=== PATIENT | male | born 1975 | race Asian ===

== ENCOUNTER 2018-06-17 00:21 | Inpatient (IN) | payer BC ==
[~2018-06-17] VITALS: Ht 175.3 cm; Wt 97.5 kg
[2018-06-17] VITALS (19 sets, daily range): BP systolic 105–151; BP diastolic 75–97
[2018-06-17] MEDS: NITROGLYCERIN 0.4 MG SL TABS BTL 25'S SL PRN ×2 (00:37→00:43)
--- NOTE | 2018-06-17 00:40 | ED Chest Pain ---
General Chief Complaint: Chest Pain Stated Complaint: SOB,PAIN IN JAW,NECK & BACK,FEVER Source: patient Exam Limitations: no limitations History of Present Illness Date Seen by Provider: Jun 17, 2018 Time Seen by Provider: 00:21 Initial Comments The patient presents to ER by private conveyance with chief complaint of chest pain starting about 10:00 or 2 and half hours prior to arrival. He says the chest pain/pressure started in his left chest radiated up his left jaw as well as his right jaw the left worse. Most of his pain is left jaw. Extremities left shoulder. No sweats nausea. He did take his temperature and it was 99.4. His blood pressure was high at 160. He does have high blood pressure on HCTZ. He has not had any cough or shortness of breath. No swelling in his hands or feet. No history of coronary artery disease. He does smoke about half pack cigarettes per day. No history of thyroid disorder. No diabetes but he is on atorvastatin 40 mg for his history of cholesterol problems. He rates the pain as severe 9-10 out of 10. He tried 3 tablets of ibuprofen, simethicone and 2 tablets of Tylenol with no relief. Allergies and Home Medications Allergies Coded Allergies: Penicillins (Verified Allergy, Unknown, 06/17/18) Patient Home Medication List Home Medication List Reviewed: Yes Review of Systems Review of Systems Constitutional: No chills, No diaphoresis EENTM: No Blurred Vision, No Double Vision Respiratory: Denies Cough, Denies Shortness of Air Cardiovascular: See HPI, Chest Pain; Denies Edema, Denies Palpitations, Denies Syncope Gastrointestinal: Denies Abdomen Distended, Denies Abdominal Pain, Denies Constipated, Denies Diarrhea, Denies Nausea, Denies Vomiting Genitourinary: Denies Burning, Denies Discharge Musculoskeletal: No back pain, No joint pain Skin: No pruritus, No rash Past Kpokwss-Ezrfnu-Qphdqk Hx Patient Social History Alcohol Use: Denies Use Recreational Drug Use: No Smoking Status: Current Everyday Smoker Type Used: Cigarettes (one half pack per day) Recent Foreign Travel: No Contact w/Someone Who Travel: No Physical Exam Vital Signs Vital Signs - First Documented 06/17/18 00:25 Temp 97.7 Pulse 101 Resp 18 B/P (MAP) 148/100 (116) Pulse Ox 99 O2 Delivery Room Air Capillary Refill : Height, Weight, BMI Height: '" Weight: lbs. oz. kg; BMI Method: General Appearance: WD/WN, Mild Distress HEENT: PERRL/EOMI, TMs Normal, Normal ENT Inspection, Pharynx Normal, Moist Mucous Membranes Neck: Full Range of Motion, Normal Inspection Respiratory: Chest Non Tender, Lungs Clear, Normal Breath Sounds, No Accessory Muscle Use, No Respiratory Distress Cardiovascular: Regular Rate, Rhythm, No Edema, Tachycardia (sinus tachycardia of 101) Gastrointestinal: Normal Bowel Sounds, Non Tender, Soft Extremity: Normal Capillary Refill, No Pedal Edema Neurologic/Psychiatric: Alert, Oriented x3 Progress/Results/Core Measures Results/Orders Lab Results Laboratory Tests Test 06/17/18 00:30 Range/Units White Blood Count 15.5 H 4.3-11.0 10^3/uL Red Blood Count 5.54 4.35-5.85 10^6/uL Hemoglobin 16.5 13.3-17.7 G/DL Hematocrit 46 40-54 % Mean Corpuscular Volume 84 80-99 FL Mean Corpuscular Hemoglobin 30 25-34 PG Mean Corpuscular Hemoglobin Concent 36 32-36 G/DL Red Cell Distribution Width 12.5 10.0-14.5 % Platelet Count 238 130-400 10^3/uL Mean Platelet Volume 8.9 7.4-10.4 FL Neutrophils (%) (Auto) 82 H 42-75 % Lymphocytes (%) (Auto) 11 L 12-44 % Monocytes (%) (Auto) 6 0-12 % Eosinophils (%) (Auto) 1 0-10 % Basophils (%) (Auto) 0 0-10 % Neutrophils # (Auto) 12.6 H 1.8-7.8 X 10^3 Lymphocytes # (Auto) 1.7 1.0-4.0 X 10^3 Monocytes # (Auto) 1.0 0.0-1.0 X 10^3 Eosinophils # (Auto) 0.1 0.0-0.3 10^3/uL Basophils # (Auto) 0.0 0.0-0.1 10^3/uL Neutrophils % (Manual) 82 % Lymphocytes % (Manual) 10 % Monocytes % (Manual) 3 % Eosinophils % (Manual) 1 % Band Neutrophils 4 % Blood Morphology Comment NORMAL Prothrombin Time 13.0 12.2-14.7 SEC INR Comment 0.9 0.8-1.4 Activated Partial Thromboplast Time 30 24-35 SEC Sodium Level 137 135-145 MMOL/L Potassium Level 3.2 L 3.6-5.0 MMOL/L Chloride Level 97 L 98-107 MMOL/L Carbon Dioxide Level 24 21-32 MMOL/L Anion Gap 16 H 5-14 MMOL/L Blood Urea Nitrogen 11 7-18 MG/DL Creatinine 0.84 0.60-1.30 MG/DL Estimat Glomerular Filtration Rate > 60 BUN/Creatinine Ratio 13 Glucose Level 171 H 70-105 MG/DL Calcium Level 9.5 8.5-10.1 MG/DL Corrected Calcium 8.5-10.1 MG/DL Magnesium Level 2.2 1.8-2.4 MG/DL Total Bilirubin 0.7 0.1-1.0 MG/DL Aspartate Amino Transf (AST/SGOT) 20 5-34 U/L Alanine Aminotransferase (ALT/SGPT) 28 0-55 U/L Alkaline Phosphatase 82 40-136 U/L Myoglobin 189.1 H 10.0-92.0 NG/ML Troponin I 0.080 H <0.028 NG/ML B-Type Natriuretic Peptide 14.7 <100.0 PG/ML Total Protein 7.9 6.4-8.2 GM/DL Albumin 4.9 H 3.2-4.5 GM/DL My Orders Orders - ALBERTA GLASS Cbc With Automated Diff (06/17/18 00:32) Magnesium (06/17/18 00:32) Chest 1 View, Ap/Pa Only (06/17/18 00:32) Ekg Tracing (06/17/18 00:32) Cardiac Profile 1 (06/17/18 00:32) Comprehensive Metabolic Panel (06/17/18 00:32) Myoglobin Serum (06/17/18 00:32) Protime With Inr (06/17/18 00:32) Partial Thromboplastin Time (06/17/18 00:32) O2 (06/17/18 00:32) Monitor-Rhythm Ecg Trace Only (06/17/18 00:32) Lipid Panel (06/18/18 06:00) Ed Iv/Invasive Line Start (06/17/18 00:32) BNP (06/17/18 00:32) Nitroglycerin 0.4 Mg Btl 25's (Nitrostat (06/17/18 00:45) Aspirin Chewable Tablet (Baby Aspirin Ch (06/17/18 00:45) Manual Differential (06/17/18 00:30) Morphine Injection (Morphine Injection (06/17/18 00:51) Ticagrelor Tablet (Brilinta Tablet) (06/17/18 01:30) Heparin Drip 22988 Unit/500ml (Heparin (06/17/18 01:16) Heparin (Bolus Per Protocol) (Heparin (B (06/17/18 01:16) Lactated Ringers (Lr 1000 Ml Iv Solution (06/17/18 01:30) Metoprolol Succinate (Xl) Tab (Toprol Xl (06/17/18 01:45) Morphine Injection (Morphine Injection (06/17/18 02:00) Morphine Injection (Morphine Injection (06/17/18 05:48) Medications Given in ED Current Medications Medications Dose Ordered Sig/Cailin Route Start Time Stop Time Status Last Admin Dose Admin Aspirin 324 mg ONCE ONCE PO 06/17/18 00:45 06/17/18 00:46 DC 06/17/18 00:36 324 MG Heparin Sodium (Porcine) HEPARIN BOLUS ACS PROTOC... 0116 ONCE IV 06/17/18 01:16 06/17/18 01:19 DC 06/17/18 01:39 5,000 UNIT Heparin Sodium/ Dextrose 500 ml @ 0 mls/hr Q0M ONCE IV 06/17/18 01:16 06/17/18 01:19 DC 06/17/18 01:46 20 MLS/HR Metoprolol Succinate 100 mg ONCE ONCE PO 06/17/18 01:45 06/17/18 01:46 DC 06/17/18 01:54 100 MG Nitroglycerin 0.4 mg UD PRN SL 06/17/18 00:45 06/17/18 00:43 0.4 MG Ticagrelor 180 mg ONCE ONCE PO 06/17/18 01:30 06/17/18 01:31 DC 06/17/18 01:37 180 MG Vital Signs/I&O 06/17/18 06/17/18 00:25 00:25 Temp 97.7 Pulse 101 Resp 18 B/P (MAP) 148/100 (116) Pulse Ox 99 O2 Delivery Room Air Room Air Progress Progress Note #1: Time: 00:45 Progress Note Start with some aspirin and nitroglycerin. EKG shows a right bundle branch block which he denies having history of. We'll get some labs. His blood pressure was about 145/101 when he got here. After the initial dosage down to 120/94. ED ACS 17 points. Not low risk. This patient is not a candidate for early discharge and should receive a standard chest pain evaluation with delayed troponin testing. Progress Note #2: Time: 06:05 Progress Note Patient's pain started to come back and he has received his third bolus of morphine 4 mg. Previously the morphine took his pain down to a very tolerable level but only lasted 3-4 hours. He is pending cardiac catheterization by cardiology this morning. Nursing front desk supervisor informs us she will have a bed on cardiac stepdown by after shift change around 0 800. Initial ECG Impression Date: Jun 17, 2018 Initial ECG Impression Time: 00:26 Initial ECG Rate: 99 Initial ECG Rhythm: Normal Sinus Initial ECG Intervals: Normal Initial ECG Impression: Normal, Nonspecific Changes (rbb) Initial ECG Comparisson: No Previous ECG Available Comment Right bundle-branch block. No previous EKG to compare to. Concerning ST depression in the lateral leads the 3, V4 and V5. Diagnostic Imaging Diagonstic Imaging: Xray (1v) Plain Films/CT/US/NM/MRI: chest Comments No Acute cardiopulmonary process. Reviewed: Reviewed by Me Transfer of Care Time: 06:05 Care transferred to: Dr. Anand Departure Communication (Admissions) Time/Spoke to Admitting Phy: 01:25 Discussed the case with Dr. Pavon and she agrees to accept the patient. Plan to room in the ER until stepdown or ICU bed becomes available. Time/Spoke to Consulting Phy: 01:14 Discussed case lab imaging EKG with Dr. Caal and he agrees with an STEMI and wants Brilinta in addition to the aspirin and heparin drip. Impression Primary Impression: NSTEMI, initial episode of care Disposition: ADMITTED INPATIENT Condition: Stable Admissions Decision to Admit Reason: Admit from ER (General) Decision to Admit/Date: Jun 17, 2018 Time/Decision to Admit Time: 01:07 Departure-Patient Inst. Referrals: EMILY TABARES MD (PCP/Family) Primary Care Physician Copy Copies To 1: EMILY TABARES MD, TITUS J Jun 17, 2018 00:40
[2018-06-17 00:41] LABS: BASOPHILS % (AUTO) 0 % (0-10); EOSINOPHILS # (AUTO) 0.1 10^3/uL (0.0-0.3); EOSINOPHILS % (AUTO) 1 % (0-10); HEMATOCRIT 46 % (40-54); HEMOGLOBIN 16.5 G/DL (13.3-17.7); LYMPHOCYTES # (AUTO) 1.7 X 10^3 (1.0-4.0); LYMPHOCYTES % (AUTO) 11 % (12-44); MEAN CORPUSCULAR HEMOGLOBIN 30 PG (25-34); MEAN CORPUSCULAR HGB CONC 36 G/DL (32-36); MEAN CORPUSCULAR VOLUME 84 FL (80-99); MEAN PLATELET VOLUME 8.9 FL (7.4-10.4); MONOCYTES % (AUTO) 6 % (0-12); NEUTROPHILS # (AUTO) 12.6 X 10^3 (1.8-7.8); NEUTROPHILS % (AUTO) 82 % (42-75); PLATELET COUNT 238 10^3/uL (130-400); RED CELL DISTRIBUTION WIDTH 12.5 % (10.0-14.5); WHITE BLOOD COUNT 15.5 10^3/uL (4.3-11.0)
[2018-06-17] MEDS ORDERED: ASPIRIN 81 MG CHEW (CHILDREN'S ASA) PO ONE (00:45)
[2018-06-17] MEDS ORDERED: morphine INJ 10 MG/ML 1ML (SYR OR VIAL) IVP STA ×3 (00:51→05:48)
[2018-06-17 00:52] LABS: INR 0.9 (0.8-1.4)
[2018-06-17 00:55] LABS: BAND NEUTROPHILS 4 %; EOSINOPHILS % (MANUAL) 1 %; LYMPHOCYTES % (MANUAL) 10 %; MONOCYTES % (MANUAL) 3 %; NEUTROPHILS % (MANUAL) 82 %
[2018-06-17 00:56] LABS: RBC MORPH NORMAL
[2018-06-17 01:01] LABS: ALANINE AMINOTRANSFERASE 28 U/L (0-55); ALBUMIN 4.9 GM/DL (3.2-4.5); ALKALINE PHOSPHATASE 82 U/L (40-136); BILIRUBIN,TOTAL 0.7 MG/DL (0.1-1.0); BUN/CREATININE RATIO 13; CALCIUM 9.5 MG/DL (8.5-10.1); CARBON DIOXIDE 24 MMOL/L (21-32); CHLORIDE 97 MMOL/L (98-107); CREATININE SERUM 0.84 MG/DL (0.60-1.30); GFR ESTIMATED > 60; GLUCOSE 171 MG/DL (70-105); MAGNESIUM 2.2 MG/DL (1.8-2.4); POTASSIUM 3.2 MMOL/L (3.6-5.0); SODIUM 137 MMOL/L (135-145); TOTAL PROTEIN 7.9 GM/DL (6.4-8.2)
[2018-06-17] MEDS ORDERED: HEParin 1000 UNIT/ML (10ML VIAL) FOR BOLUS IV ONE (01:16)
[2018-06-17] MEDS ORDERED: HEParin DRIP 25000 UNIT/500ML 500 ML IV ONE (01:16)
[2018-06-17] MEDS ORDERED: TICAGRELOR 90 MG TABLET (BRILINTA) PO ONE ×2 (01:30→13:11)
[2018-06-17] MEDS: LACTATED RINGERS 1,000 ML IV SCH ×2 (01:39→09:55)
[2018-06-17] MEDS ORDERED: meTOprolol SUCCINATE 100 MG (TOPROL XL) TAB PO ONE (01:45)
--- NOTE | 2018-06-17 06:10 | Diagnostic Imaging Report ---
INDICATION: Chest pain. FINDINGS: Portable chest. The lungs are well-aerated and clear. Heart is not enlarged. There is no pulmonary edema. No hilar adenopathy. No pneumothorax or pleural effusion. No bony abnormalities. IMPRESSION: Normal portable chest. Dictated by: Dictated on workstation # [id number]
--- NOTE | 2018-06-17 06:55 | NUR ---
PT REPORT GIVEN TO LINDA BROWNING @ 0655. PT TO ROOM #ICU1.
--- NOTE | 2018-06-17 08:00 | NUR ---
FARZANA JAMIL admitted to room CU1-1, with an admitting diagnosis of NSTEMI, on 06/17/18 from ER, accompanied by staff.FARZANA JAMIL introduced to surroundings, call light, bed controls, phone, TV, temperature control, lights, meal times, smoking policy, visitor policy, side rail policy, bathrooms and showers. Patient Rights given to patient in the handbook. FARZANA JAMIL verbalizes understanding that [facility] is not responsible for the loss or damage to any personal effects or valuables that are kept in the patients posession during their hospitalization. FARZANA JAMIL verbalizes understanding of Interdisciplinary Patient Education. Patient and/or family were informed about the Rapid Response Team and its purpose.
[2018-06-17] MEDS ORDERED: HEParin DRIP 25000 UNIT/500ML (ACS THERAPY) IV SCH (08:30)
[2018-06-17] MEDS ORDERED: HEParin 1000 UNIT/ML BOLUS (ACS THERAPY) IV PRN (08:30)
[2018-06-17] MEDS ORDERED: LACTATED RINGERS 1,000 ML IV SCH (08:30)
[2018-06-17] MEDS ORDERED: NITROGLYCERIN 0.4 MG SL TABS BTL 25'S SL PRN (08:30)
[2018-06-17] MEDS ORDERED: morphine INJ 4 MG/ML 1 ML (VIAL/SYRINGE) IVP PRN (08:30)
[2018-06-17] MEDS ORDERED: ONDANSETRON 4 MG/2 ML (SDV) Z0FRAN IVP PRN (08:30)
[2018-06-17] MEDS: meTOprolol SUCCINATE 100 MG (TOPROL XL) TAB PO SCH (08:33)
[2018-06-17] MEDS ORDERED: DAPA1TAB3 PO (08:41)
[2018-06-17] MEDS ORDERED: SITA100T12 PO (08:41)
[2018-06-17] MEDS ORDERED: ATOR40TA70 PO (08:41)
[2018-06-17] MEDS ORDERED: AMLO10TA7 PO (08:41)
[2018-06-17] MEDS ORDERED: TELM1TAB28 PO (08:41)
[2018-06-17] MEDS ORDERED: CETI10TA20 PO (08:43)
[2018-06-17] MEDS ORDERED: CHOL10007 PO (08:43)
--- NOTE | 2018-06-17 08:43 | NUR ---
SPOKE WITH THE PATIENT ABOUT HIS MEDICATIONS. HE WAS ABLE TO LIST THEM TO ME AND I COMPARED WITH THE EXT MED HX. HE TAKES VITAMIN D DAILY AND ZYRTEC BID OTC.
[2018-06-17] MEDS ORDERED: lisINopril 5 MG (PRINIVIL) TABLET PO SCH (09:00)
[2018-06-17 09:13] LABS: CHOLESTEROL 163 MG/DL (< 200); HDL CHOLESTEROL 51 MG/DL (40-60); TRIGLYCERIDES 237 MG/DL (<150); VLDL CHOLESTEROL 47 MG/DL (5-40)
[2018-06-17] MEDS ORDERED: LIDOCAINE 1% INJ 20 ML 20 ML VIAL ONE (10:54)
[2018-06-17] MEDS ORDERED: fentaNYL INJECTION 100 MCG/2 ML AMP ONE (10:55)
[2018-06-17] MEDS ORDERED: MIDAZOLAM 5 MG/5 ML (VERSED) VIAL ONE (10:55)
[2018-06-17] MEDS ORDERED: NS IV 1000 ML 2,000 ML ONE (10:55)
[2018-06-17] MEDS ORDERED: HEParin 1000 UNIT/ML (10ML VIAL) FOR BOLUS ONE ×2 (10:55→13:09)
--- NOTE | 2018-06-17 11:20 | NUR ---
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 Will await pt's return.
[2018-06-17] MEDS ORDERED: NS IV 1000 ML 1,000 ML ONE ×2 (11:29→15:06)
--- NOTE | 2018-06-17 11:34 | Consultation-Cardiology ---
HPI-Cardiology Cardiology Consultation: Date of Consultation 06/17/18 Date of Admission Attending Physician Linda Ashley DO Admitting Physician Ian Flores MD Consulting Physician Lynda CAAL MD HPI: Time Seen by a Provider: 10:00 Chief Complaint: Chest pain This is a 43-year-old gentleman with history of active smoking, diabetes, hypertension, hyperlipidemia who presented to the ER with prolonged episode of chest pain. Radiating to his left jaw. No shortness of breath. Severe chest pain. 12/08. No relief with antacids. Improved with 3 nitroglycerin. The patient denies any significant associated cardiac symptoms. No exacerbation or relieving factors. Review of Systems-Cardiology Review of Systems Constitutional: As described under HPI; No As described under HPI, No no symptoms reported, No chills, No fever, No lightheadedness Eyes: No As described under HPI, No no symptoms reported, No blindness, No blurred vision, No contact lenses, No drainage, No decreased acuity, No foreign body sensation, No pain, No vision change Ears/Nose/Throat: No As described under HPI, No no symptoms reported, No chronic hearing loss, No ear discharge, No ear pain, No nasal drainage, No ulcerations Respiratory: No no symptoms reported; As described under HPI; No As described under HPI, No cough, No orthopnea, No shortness of breath, No SOB with excertion Cardiovascular: No no symptoms reported; As described under HPI; No As described under HPI; chest pain; No edema, No irregular heart rate, No lightheadedness, No palpitations Gastrointestinal: No no symptoms reported, No As described under HPI, No abdomen distended, No abdominal pain, No blood streaked bowels, No constipation , No diarrhea, No nausea, No vomiting, No stool coloration changes Genitourinary: No As described under HPI, No burning, No dysuria, No discharge , No frequency, No flank pain, No hematuria, No urgency Skin: No rash, No skin related problems, No ulcerations Psychiatric/Neurological: No anxiety, No depression, No seizure, No focal weakness, No syncope Hematologic: No bleeding abnormalities PUM-Pcqmsi-Moafiu Hx Patient Social History Alcohol Use: Denies Use Recreational Drug Use: No Smoking Status: Current Everyday Smoker Type Used: Cigarettes (one half pack per day) 2nd Hand Smoke Exposure: Yes Recent Foreign Travel: No Recent Infectious Disease Expo: No Hospitalization with Isolation: Denies Past Medical History PMH As described under Assessment. Family Medical History Family History: Cardiovascular disease 19 FATHER, Onset:40's - 50 Hypercholesterolemia 19 FATHER, Onset:40's - 50 Hypertension 19 FATHER Myocardial infarction 19 FATHER Allergies and Home Medications Allergies Coded Allergies: Penicillins (Verified Allergy, Unknown, 06/17/18) Home Medications Apixaban 5 Mg Tablet, 5 MG PO BID Prescribed by: Lynda CAAL on 06/18/18 1142 Aspirin 81 Mg Tablet.dr, 81 MG PO DAILY Prescribed by: Lynda CAAL on 06/18/18 1143 Atorvastatin Calcium 80 Mg Tablet, 80 MG PO HS Prescribed by: Lynda CAAL on 06/18/18 1142 Cetirizine HCl 10 Mg Tablet, 10 MG PO BID, (Reported) Cholecalciferol (Vitamin D3) 1,000 Unit Capsule, 1,000 UNIT PO DAILY, (Reported) Dapagliflozin/Metformin HCl 1 Each Tab.bp.24h, 2 TAB PO DAILY, (Reported) Metoprolol Succinate 100 Mg Tab.er.24h, 100 MG PO DAILY Prescribed by: Lynda CAAL on 06/18/18 1142 Sitagliptin Phosphate 100 Mg Tablet, 100 MG PO DAILY, (Reported) Telmisartan/Hydrochlorothiazid 1 Each Tablet, 1 TAB PO DAILY, (Reported) Ticagrelor 90 Mg Tablet, 90 MG PO BID Prescribed by: Lynda CAAL on 06/18/18 1142 [Nitroglycerin] 0.4 MG BTL, 0 MG SL NEEDED PRN for CHEST PAIN Prescribed by: Lynda CAAL on 06/18/18 1144 Patient Home Medication List Home Medication List Reviewed: Yes Physical Exam-Cardiology Physical Exam Vital Signs/I&O 06/18/18 06/18/18 06/18/18 06/18/18 03:30 03:30 04:00 07:00 Temp 98.6 Pulse 68 70 Resp 21 B/P (MAP) 146/91 (109) Pulse Ox 98 97 O2 Delivery Room Air Room Air 06/18/18 06/18/18 06/18/18 06/18/18 08:00 08:00 08:35 12:37 Temp 98.0 Pulse 76 75 Resp 26 9 B/P (MAP) 146/88 (107) 146/85 (105) Pulse Ox 95 97 97 O2 Delivery Room Air Room Air Room Air 06/18/18 00:00 Intake Total 1820 ml Output Total 2800 ml Balance -980 ml Capillary Refill : Less Than 3 Seconds Constitutional: appears stated age, AAO x 3; No apparent distress; well- developed, well-nourished HEENT: PERRL; No normal ENT inspection, No TMs normal, No pharynx normal, No scleral icterus (R), No scleral icterus (L), No pale conjunctivae (R), No pale conjunctivae (L), No photophobia, No TM abnormal (R), No TM abnormal (L), No pharyngeal erythema, No tonsillar exudate, No other, No discharge, No EOMI; hearing is well preserved; No hard of hearing; oral hygience is good; No ulceration, No xanthelasmas are seen Neck: No non-tender, No full range of motion, No supple, No normal inspection, No carotid bruit, No limited range of motion, No lymphadenopathy (R), No lymphadenopathy (L), No tender lateral, No tender midline, No thyromegaly, No other; carotid pulses are 2 + bilaterally; No with good upstrokes Respiratory: No accessory muscle use, No respiratory distress, No chest tender , No chest expansion is symmetric; chest is bilaterally symmetric; No lungs clear to percussion; lungs clear to auscultation; No crackles, No rhonchi, No rales, No stridor, No wheezing, No pleural rub, No other Cardiovascular: regular rate-rhythm; No irregularly irregular, No extra beats, No parasternal heave is noted, No JVD, No edema, No bradycardia, No tachycardia , No point of maximal impulse, No cardiac thrills are palpable; S1 and S2; No gallop/S3, No gallop/S4, No diastolic murmur, No systolic murmur, No friction rub, No click, No other Gastrointestinal: No tender, No soft, No round, No distended, No pulsatile mass , No organomegaly, No guarding, No rebound, No tenderness, No hernia, No mass, No audible bowel sounds, No abnormal bowel sounds, No abdominal bruits, No spleenomegaly, No other Rectal: deferred Extremities: No normal range of motion, No non-tender, No normal inspection, No pedal edema, No calf tenderness, No normal capillary refill, No pelvis stable , No calf tenderness, No inflammation, No pedal edema, No slow capillary refill , No swelling, No other, No abrasion, No clubbing, No cyanosis, No ecchymosis, No laceration, No no lower extremity edema bilateral, No significant edema, No tenderness, No wound Neurologic/Psychiatric: no motor/sensory deficits, alert, normal mood/affect, oriented x 3, power is 5/5 both on sides Skin: No normal color, No warm/dry, No cyanosis, No cool, No diaphoresis, No damp, No ecchymosis, No jaundice, No mottled, No pallor, No rash, No tattoos/ piercings, No ulcerations, No rash on exposed areas, No ulcerations on exposed areas, No other Data Review Labs Laboratory Tests 06/18/18 03:25: White Blood Count 13.2H, Red Blood Count 4.80, Hemoglobin 14.2, Hematocrit 41, Mean Corpuscular Volume 85, Mean Corpuscular Hemoglobin 30, Mean Corpuscular Hemoglobin Concent 35, Red Cell Distribution Width 12.8, Platelet Count 204, Mean Platelet Volume 9.1, Sodium Level 139, Potassium Level 3.5L, Chloride Level 106, Carbon Dioxide Level 23, Anion Gap 10, Blood Urea Nitrogen 7, Creatinine 0.67, Estimat Glomerular Filtration Rate > 60, BUN/Creatinine Ratio 10, Glucose Level 130H, Calcium Level 8.7, Triglycerides Level 173H, Cholesterol Level 137, LDL Cholesterol Direct 78, VLDL Cholesterol 35, HDL Cholesterol 39L ECG Impression ECG Initial ECG Rhythm: Normal Sinus A/P-Cardiology Assessment/Admission Diagnosis Non-STEMI, Diabetes, Hypertension, Hyperlipidemia, Active smoking Plan Non-STEMI, given dual antiplatelet therapy, Lovenox. Coronary angiography is recommended. Informed consent was taken and all risks and complication were discussed at length. Diabetes, continue outpatient medications. Hypertension, already on angiotensin receptor nicko, amlodipine. Hyperlipidemia, Lipitor 40. Active smoking, strongly recommended to quit smoking. Thank you for your consultation. Please call me if you have any questions. Xiomara Caal MD, FACP, FACC, FSCAI, FHRS, CCDS Interventional Cardiology Cardiac Electrophysiology Vascular Medicine and Endovascular Interventions Clinical Quality Measures AMI/AHF: ASA po Prior to arrival: No DVT/VTE Risk/Contraindication: Risk Factor Score Per Nursin RFS Level Per Nursing on Admit: 1=Low/No VTE PPX Lynda CAAL MD Jun 17, 2018 11:34 am
--- NOTE | 2018-06-17 11:34 | Cardiac Procedure Note-CS/ASA ---
Pre-Procedure Note Pre-Op Procedure Note H&P Reviewed The H&P was reviewed, patient examined and no changes noted. Date H&P Reviewed: Jun 17, 2018 Time H&P Reviewed: 11:34 Conscious Sedation Pre-Proced Time 11:34 ASA Score 3 For ASA 3 and 4: Consider anesthesia and medical clearance. Also, for patients with a history of failed moderate sedation consider anesthesia. Airway Lungs Heart ASA score ASA 1: a normal healthy patient ASA 2: a patient with a mild systemic disease (mid diabetes, controlled hypertension, obesity ASA 3: a patient with a severe systemic disease that limits activity (angina , COPD, prior Myocardial infarction) ASA 4: a patient with an incapacitating disease that is a constant threat to life (CHF, renal failure) ASA 5: a moribund patient not expected to survive 24 hrs. (ruptured aneurysm) ASA 6: a declared brain- patient whose organs are being harvested. For emergent operations, add the letter E after the classification Mallampati Classification Grade 1 Sedation Plan Analgesia, Amnesia, Plan communicated to team members, Discussed options with patient/fam, Discussed risks with patient/fam The patient is an appropriate candidate to undergo the planned procedure, sedation, and anesthesia. The patient immediately re-assessed prior to indication. Lynda MENEZES MD Jun 17, 2018 11:34 am
[2018-06-17] MEDS ORDERED: VERAPAMIL 5 MG/2 ML (CALAN) VIAL IV ONE (11:37)
[2018-06-17] MEDS ORDERED: NITRO DRIP 25000 MCG/D5W 250 ML IV ONE (11:37)
--- NOTE | 2018-06-17 11:51 | History & Physical-Hospitalist ---
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 He reports the pain radiated into his face and scalp and tried to go to sleep but the pain was so severe he had to present to the ER. Patient had elevated troponin with risk factors for coronary artery stenosis. He was placed on chest pain protocol given aspirin and currently is preparing for cardiac catheterization by Dr. Caal. Source: patient Exam Limitations: no limitations Date Seen 06/17/18 Time Seen by a Provider: 10:30 Attending Physician Linda Ashley Mark D MD Referring Physician Date of Admission Jun 17, 2018 at 07:03 Home Medications & Allergies Home Medications Reviewed patient Home Medication Reconciliation performed by pharmacy medication reconciliations photonic laboratory technician and/or nursing. Patients Allergies have been reviewed. 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) Alcohol Use: Denies Use Recreational Drug Use: No Smoking Status: Current Everyday Smoker Type Used: Cigarettes (one half pack per day) 2nd Hand Smoke Exposure: Yes Recent Foreign Travel: No Contact w/other who traveled: No Recent Hopitalizations: No Recent Infectious Disease Expo: No Seasonal Allergies Seasonal Allergies: No Past Medical History Cardiac: High Cholesterol, Hypertension History of Blood Disorders: No Family History Cardiovascular disease 19 FATHER, Onset:40's - 50 Hypercholesterolemia 19 FATHER, Onset:40's - 50 Hypertension 19 FATHER Myocardial infarction 19 FATHER Review of Systems Constitutional: see HPI EENTM: mouth pain Respiratory: no symptoms reported Cardiovascular: chest pain Gastrointestinal: no symptoms reported Genitourinary: no symptoms reported Musculoskeletal: no symptoms reported Skin: no symptoms reported Psychiatric/Neurological: Headache All Other Systems Reviewed Negative Unless Noted: Yes Physical Exam Physical Exam Vital Signs Vital Signs - First Documented 06/17/18 00:25 Temp 97.7 Pulse 101 Resp 18 B/P (MAP) 148/100 (116) Pulse Ox 99 O2 Delivery Room Air Capillary Refill : Less Than 3 Seconds Height, Weight, BMI Height: 5'9.00" Weight: 215lbs. 0.0oz. 97.712693fb; 31.8 BMI Method:Stated General Appearance: No Apparent Distress, WD/WN, Obese Eyes: Right Eye Normal Inspection, Right Eye PERRL HEENT: PERRL/EOMI, TMs Normal, Normal ENT Inspection, Pharynx Normal, Moist Mucous Membranes Neck: Full Range of Motion, Normal Inspection, Non Tender Respiratory: Chest Non Tender, Lungs Clear, Normal Breath Sounds, No Accessory Muscle Use, No Respiratory Distress Cardiovascular: Regular Rate, Rhythm, No Edema, No Gallop, No JVD, No Murmur, Normal Peripheral Pulses Gastrointestinal: Normal Bowel Sounds, No Organomegaly, No Pulsatile Mass, Non Tender, Soft Back: Normal Inspection, No CVA Tenderness, No Vertebral Tenderness Extremity: Normal Capillary Refill, Normal Inspection, Normal Range of Motion, Non Tender, No Calf Tenderness, No Pedal Edema Neurologic/Psychiatric: Alert, Oriented x3, No Motor/Sensory Deficits, Normal Mood/Affect Skin: Normal Color, Warm/Dry Lymphatic: No Adenopathy Results Results/Procedures Labs Laboratory Tests 06/17/18 00:30 Patient resulted labs reviewed. Assessment/Plan Admission Diagnosis Assessment: NSTEMI HTN HLP Smoker Plan: Cardiac cath Admission Status: Inpatient Order (span 2 midnights) Reason for Inpatient Admission: NSTEMI Diagnosis/Problems Diagnosis/Problems (1) NSTEMI (non-ST elevated myocardial infarction) Status: Acute (2) Hypertension Status: Chronic Qualifiers: Hypertension type: essential hypertension Qualified Codes: I10 - Essential (primary) hypertension (3) Hyperlipidemia Status: Chronic Qualifiers: Hyperlipidemia type: mixed hyperlipidemia Qualified Codes: E78.2 - Mixed hyperlipidemia (4) Smoker Status: Chronic (5) Leukocytosis Status: Acute Qualifiers: Leukocytosis type: leukemoid reaction Qualified Codes: D72.823 - Leukemoid reaction (6) Hypokalemia Status: Acute (7) Hyperglyceridemia Status: Chronic Clinical Quality Measures AMI/AHF: ASA po Prior to arrival: No DVT/VTE Risk/Contraindication: Risk Factor Score Per Nursin RFS Level Per Nursing on Admit: 1=Low/No VTE PPX LINDA ASHLEY DO Jun 17, 2018 11:51
[2018-06-17] MEDS ORDERED: ADENOSINE 3 MG/1 ML (ADENOSCAN) 30ML VIAL IV ONE ×3 (12:20→12:51)
[2018-06-17] MEDS ORDERED: ONDANSETRON 4 MG/2 ML (SDV) Z0FRAN ONE (14:28)
--- NOTE | 2018-06-17 14:29 | Coronary Angiography & PCI ---
Coronary Angiography & PCI DATE OF PROCEDURE: 06/17/18 INDICATION: NSTEMI PREOPERATIVE DIAGNOSIS: Non-STEMI POSTOPERATIVE DIAGNOSIS: PTCA to distal RCA. HISTORY: This is a 43-year-old gentleman with history of diabetes and active smoking. He also has significant family history of CAD. He presents with an episode of chest pain and positive enzymes. Working diagnosis is non-ST elevation MS. He was given Brilinta and Lovenox. Therefore, the patient was scheduled for coronary angiography. PROCEDURES PERFORMED: 1.Coronary angiography. 2.Left heart catheterization. 3.FFR to the LAD. 4. FFR to the left circumflex artery. 5. FFR to OM 2. 6. FFR to the RCA. 7. PTCA to the RCA. COMPLICATIONS: None. SPECIMENS: None. ESTIMATED BLOOD LOSS: 10 mL ANESTHESIA: Conscious sedation ANTICOAGULATION: IV heparin CONTRAST: 240ml. FLUOROSCOPY: 42.4 minutes. FLOUROSCOPY DOSE: 4160 mgy. PROCEDURE DETAILS: The patient is a 43 male and was brought to the lab asst after informed consent was taken. All the risks and complications were explained in detail; this included the risk of bleeding, vascular damage, stroke , MS and even . The patient was draped and prepped in the usual sterile fashion. Access was gained in the right radial artery with a 6 Kazakh sheath. Coronary angiography and left heart catheterization was performed with the Richmond catheter. FINDINGS: 1.Left main: Patent. 2.LAD: Moderate to severe mid disease. CANDACE 2 flow. Ectatic disease in the proximal LAD. 3.Left circumflex artery: Severe athero-ectasia noted in the left circumflex artery. Moderate to severe disease noted in the left circumflex artery. Moderate to severe disease in the ostium of OM 2. 4.RCA: Significant athero-ectatic disease in the entire RCA. Severe disease in the mid PDA with flush occlusion of the distal PDA suggesting embolic disease. 5.Left heart catheterization: Aortic pressure 96/70 mmHg. LV pressure 96/13 mmHg. LVEDP 21 mmHg. Normal LV function with no wall motion abnormalities. Normal gradient across the aortic valve. RECOMMENDATIONS: FFR to the LAD, left circumflex artery, OM 2, RCA is recommended. PTCA/intervention is recommended to the distal RCA. INTERVENTION DETAILS: For FFR we used the Richmond catheter and a pressure wire. IV heparin for anticoagulation. ACT was done thrice. ACT was 274 seconds. We crossed the lesion in the LAD with the pressure wire. Adenosine was given at 140 g per KG per minute half minutes. Lowest FFR was 0.90 which was acceptable therefore PCI was deferred. We then performed an FFR of the left circumflex artery with the same pressure wire. Lowest FFR was 0.95 which is acceptable therefore PCI was deferred. The pressure wire was then placed in the distal aspect of OM 2 and another FFR done with adenosine infusion as mentioned above. FFR was 0.91 which is acceptable therefore PCI was deferred. The wire was taken out and post -angiogram did not show any vascular complication. We then cannulated the RCA with the Richmond catheter and crossed the lesion in the mid PDA with a FFR wire and performed adenosine infusion. FFR was 0.76 which is significant therefore intervention is recommended. We took a JR4 guide catheter, whisper extra-support guidewire and crossed the lesion in the mid PDA. We then tried to cross with a Xience Francheska 2.25 x 12 drug eluting stent but were not able to cross the bifurcation of the PDA and PL branch. The stent was therefore taken out and we put a josephine wire which was a BMW. We were still not able to cross with the stent. We then took 20 by 12 balloon and performed 2 inflations. One was across the lesion at 14 bienvenido for 40 seconds. The balloon was deflated and placed at the bifurcation of the PDA and PL and a low pressure inflation was done at 6 bienvenido for 17 seconds. The balloon was taken out however we were still not able to cross with the stent. We therefore took the whisper wire out and over the BMW wire we placed a guide line therefore support. The tip of the guide liner was placed in the distal RCA however we were still not able to cross into the PDA. Significant improvement of the lesion was noted after balloon angioplasty. With only 10 percent residual stenosis. There was also no recoil noted. We had already used 240 mL of contrast and over 40 minutes of fluoroscopy time therefore we decided to stop at this point in time. The patient was chest pain-free with no ST changes. The interventional equipment was taken out of the RCA and post- angiogram did not reveal any complication. Good flow across the lesion with less than 10 percent residual stenosis. Please note that the patient was given Brilinta before intervention started. Wrist band placed. CONCLUSIONS: 1. Moderate to severe LAD and left circumflex artery disease with significant athero-ectasia. FFR negative of the LAD and left circumflex system therefore PCI deferred. 2. Severe athero-ectasia of the RCA with severe disease in the mid PDA and flush occlusion of the distal PDA suggesting possible embolic disease. FFR across the mid PDA was abnormal therefore successful PTCA. Stent could not cross the bifurcation of the PL and PDA. 3. Continue with Brilinta. Will recommend eliquis for severe ectasia and possible embolic disease. 4. high dose lipitor. Smoking cessation was strongly recommended. Xiomara Caal MD, FACP, FACC, [facility] Interventional Cardiology Lynda CAAL MD Jun 17, 2018 14:29
[2018-06-17] MEDS ORDERED: lisINopril 40 MG (PRINIVIL) TABLET PO SCH (14:45)
[2018-06-17] MEDS ORDERED: PATIENT MAY USE OWN MEDS, ALL PO SCH (14:45)
--- NOTE | 2018-06-17 14:54 | NUR ---
Pt returned from laborer adjustable steel joist at this time. Report received from laborer adjustable steel joist staff at bedside. Right wrist site continues with vasc band at this time. Pulse noted in right wrist, no bleeding noted at this time. Will continue to closely monitor.
[2018-06-17] MEDS: NS IV 1000 ML 1,000 ML IV SCH ×2 (15:14→17:27)
[2018-06-17] MEDS: lisINopril 10 MG (PRINIVIL) TABLET PO SCH (15:54)
[2018-06-17] MEDS: TICAGRELOR 90 MG TABLET (BRILINTA) PO SCH (20:59)
[2018-06-17] MEDS: APIXABAN 5 MG (ELIQUIS) TABLET PO SCH (20:59)
[2018-06-17] MEDS ORDERED: ATORVASTATIN 80 MG (LIPITOR) TABLET PO SCH ×2 (21:00)
[2018-06-18] VITALS: BP 145/85
[2018-06-18] MEDS: NS IV 1000 ML 1,000 ML IV SCH (03:34)
[2018-06-18 03:35] LABS: HEMOGLOBIN 14.2 G/DL (13.3-17.7); MEAN PLATELET VOLUME 9.1 FL (7.4-10.4); RED CELL DISTRIBUTION WIDTH 12.8 % (10.0-14.5); WHITE BLOOD COUNT 13.2 10^3/uL (4.3-11.0)
[2018-06-18 03:57] LABS: BUN/CREATININE RATIO 10; CALCIUM 8.7 MG/DL (8.5-10.1); CARBON DIOXIDE 23 MMOL/L (21-32); CHLORIDE 106 MMOL/L (98-107); CHOLESTEROL 137 MG/DL (< 200); CREATININE SERUM 0.67 MG/DL (0.60-1.30); GFR ESTIMATED > 60; GLUCOSE 130 MG/DL (70-105); HDL CHOLESTEROL 39 MG/DL (40-60); POTASSIUM 3.5 MMOL/L (3.6-5.0); SODIUM 139 MMOL/L (135-145); TRIGLYCERIDES 173 MG/DL (<150); VLDL CHOLESTEROL 35 MG/DL (5-40)
[2018-06-18 04:00] VITALS: BP 146/91
[2018-06-18 08:00] VITALS: BP_SYST 146; BP_DIAS 85; BP_DIAS 88
[2018-06-18] MEDS: TICAGRELOR 90 MG TABLET (BRILINTA) PO SCH (09:14)
[2018-06-18] MEDS: lisINopril 10 MG (PRINIVIL) TABLET PO SCH (09:15)
[2018-06-18] MEDS: APIXABAN 5 MG (ELIQUIS) TABLET PO SCH (09:15)
[2018-06-18] MEDS: meTOprolol SUCCINATE 100 MG (TOPROL XL) TAB PO SCH (09:15)
--- NOTE | 2018-06-18 09:39 | Progress Note-Hospitalist ---
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 He reports the pain radiated into his face and scalp and tried to go to sleep but the pain was so severe he had to present to the ER. Patient had elevated troponin with risk factors for coronary artery stenosis. He was placed on chest pain protocol given aspirin and currently is preparing for cardiac catheterization by Dr. Caal. Subjective/Events-last exam Patient is feeling much better this morning. Heart catheter yesterday showed severe ectatic lesions in the coronary arteries and diffuse atherosclerotic lesions. FFR was elevated for several of the lesions, one was low and amenable to angioplasty. Evidently there was some question about anomalies of the coronary arteries bringing into question a secondary disease process. Patient is determined to pursue lifestyle changes, stop smoking, and increase his exercise. Objective Exam Vital Signs Vital Signs Date Time Temp Pulse Resp B/P (MAP) Pulse Ox O2 Delivery O2 Flow Rate FiO2 06/18/18 12:37 06/18/18 08:35 97 Room Air 06/18/18 08:00 98.0 75 9 Capillary Refill : Less Than 3 Seconds General Appearance: No Apparent Distress, WD/WN, Obese HEENT: PERRL/EOMI, TMs Normal, Normal ENT Inspection, Pharynx Normal, Moist Mucous Membranes Neck: Full Range of Motion, Normal Inspection, Non Tender Respiratory: Chest Non Tender, Lungs Clear, Normal Breath Sounds, No Accessory Muscle Use, No Respiratory Distress Cardiovascular: Regular Rate, Rhythm, No Edema, No Gallop, No JVD, No Murmur, Normal Peripheral Pulses Gastrointestinal: Normal Bowel Sounds, No Organomegaly, No Pulsatile Mass, Non Tender, Soft Back: Normal Inspection, No CVA Tenderness, No Vertebral Tenderness Extremity: Normal Capillary Refill, Normal Inspection, Normal Range of Motion, Non Tender, No Calf Tenderness, No Pedal Edema Neurologic/Psychiatric: Alert, Oriented x3, No Motor/Sensory Deficits, Normal Mood/Affect Skin: Normal Color, Warm/Dry Lymphatic: No Adenopathy Results/Procedures Lab Laboratory Tests 06/18/18 03:25 Patient resulted labs reviewed. Assessment/Plan Assessment and Plan Assess & Plan/Chief Complaint 1. Non-ST segment elevation myocardial infarction-status post PTCA 2. Tobaccoism currently quit and curtailed and counseled 3. Type II diabetes 4. Hyperlipidemia pursue aggressive statin use 5. Diffuse coronary artery disease- 6. Hypertension on lisinopril, and beta nicko d/c planning and f/u per cardiology Clinical Quality Measures AMI/AHF: ASA po Prior to arrival: No DVT/VTE Risk/Contraindication: Risk Factor Score Per Nursin RFS Level Per Nursing on Admit: 1=Low/No VTE PPX DEN RODRIGUES MD Jun 18, 2018 09:39
[2018-06-18] MEDS ORDERED: METO-395 PO (11:42)
[2018-06-18] MEDS ORDERED: ATOR80TA76 PO (11:42)
[2018-06-18] MEDS ORDERED: APIX5TAB PO (11:42)
[2018-06-18] MEDS ORDERED: TICA90TA PO (11:42)
--- NOTE | 2018-06-18 11:42 | Discharge Inst-Post CATH ---
Discharge Inst-CATH/EP Post Cardiac Cath/EP D/C Inst Follow Up/Plan Dr Caal in 2-3 weeks <b>CARDIAC CATH/EP PROCEDURE DISCHARGE INSTRUCTIONS</b> Cardiac Rehab Please be expecting a follow up call from Cardiac Rehab within in one week. ACTIVITY * Go Home directly and rest. * Limit activity of the leg (or wrist if it was used) for 7 days including aerobics, swimming, jogging, bicycling, etc. * Restrict stair-climbing for 7 days if possible, if not, climb up with your non -cath leg, then bring together on the same step. * Avoid lifting, pushing, pulling or excessive movement of the affected extremity for 7 days. * Customary sexual activity may be resumed after 2 days-use caution not to use a position that strains or causes pain to the affected extremity. * No driving for 24 hours. * NO SMOKING. * Avoid straining for bowel movements for 7 days. * Gentle walking on level ground is allowed. * Returning to work will depend on the type of procedure and the results. Your doctor will discuss this with you. CALL YOUR DOCTOR FOR ANY OF THE FOLLOWING: *If bleeding from the puncture site occurs- Apply gentle pressure to site with clean cloth and call your doctor or EMS. * If a knot or lump forms under the skin, increases in size, or causes pain. * If bruising appears to be worsening or moving further down your leg instead of disappearing. * Temperature above 101 F. CARE OF YOUR GROIN INCISION; * Bruising or purple discoloration of the skin near the puncture site is common. * You may shower only, no bathtub bathing for 5 days. Be careful to avoid slipping as your leg may feel stiff. * If a closure device was used on your femoral artery, please see the attached guide regarding care of the device and your leg. * Leave dressing on FOR 24 hours. CARE OF YOUR WRIST INCISION; * Bruising or purple discoloration of the skin near the puncture site is common. * You may shower. * DO NOT submerge wrist. * Leave dressing on FOR 24 hours. Lynda CAAL MD Jun 18, 2018 11:42
[2018-06-18] MEDS ORDERED: ASPI-983 PO (11:43)
[2018-06-18] MEDS ORDERED: Nitroglycerin SL (11:44)
--- NOTE | 2018-06-18 12:37 | NUR ---
FARZANA JAMIL demonstrates understanding of discharge instructions and accurately returns instructions upon questioning. Copy of Post-Discharge Instructions and Medication Discharge Instructions given to PT. FARZANA JAMIL is able to manage continuing needs after discharge. Patients belongings returned to PT. Skin dry and intact; no breakdown noted. Patient discharged from [facility] on 06/18/18 at 1237. FARZANA JAMIL left floor via AMBULATION, accompanied by STAFF/FAMILY.
--- NOTE | 2018-06-18 13:11 | Cardiology Progress Note ---
Cardiology SOAP Progress Note Subjective: No further chest pain. Objective: I&O/Vital Signs 06/18/18 06/18/18 06/18/18 06/18/18 03:30 03:30 04:00 07:00 Temp 98.6 Pulse 68 70 Resp 21 B/P (MAP) 146/91 (109) Pulse Ox 98 97 O2 Delivery Room Air Room Air 06/18/18 06/18/18 06/18/18 06/18/18 08:00 08:00 08:35 12:37 Temp 98.0 Pulse 76 75 Resp 26 9 B/P (MAP) 146/88 (107) 146/85 (105) Pulse Ox 95 97 97 O2 Delivery Room Air Room Air Room Air 06/18/18 00:00 Intake Total 1820 ml Output Total 2800 ml Balance -980 ml Weight (Pounds): 215 Weight (Ounces): 0.0 Weight (Calculated Kilograms): 97.477058 Constitutional: appears stated age, AAO x 3; No apparent distress; well- developed, well-nourished Respiratory: No accessory muscle use, No respiratory distress, No chest tender , No chest expansion is symmetric; chest is bilaterally symmetric; No lungs clear to percussion; lungs clear to auscultation; No crackles, No rhonchi, No rales, No stridor, No wheezing, No pleural rub, No other Cardiovascular: regular rate-rhythm; No irregularly irregular, No extra beats, No parasternal heave is noted, No JVD, No edema, No bradycardia, No tachycardia , No point of maximal impulse, No cardiac thrills are palpable; S1 and S2; No gallop/S3, No gallop/S4, No diastolic murmur, No systolic murmur, No friction rub, No click, No other Gastrointestional: No tender, No soft, No round, No distended, No pulsatile mass, No organomegaly, No guarding, No rebound, No tenderness, No hernia, No mass, No audible bowel sounds, No abnormal bowel sounds, No abdominal bruits, No spleenomegaly, No other Extremities: No normal range of motion, No non-tender, No normal inspection, No pedal edema, No calf tenderness, No normal capillary refill, No pelvis stable , No calf tenderness, No inflammation, No pedal edema, No slow capillary refill , No swelling, No other, No abrasion, No clubbing, No cyanosis, No ecchymosis, No laceration, No no lower extremity edema bilateral, No significant edema, No tenderness, No wound Neurologic/Psychiatric: no motor/sensory deficits, alert, normal mood/affect, oriented x 3, power is 5/5 both on sides Skin: No normal color, No warm/dry, No cyanosis, No cool, No diaphoresis, No damp, No ecchymosis, No jaundice, No mottled, No pallor, No rash, No tattoos/ piercings, No ulcerations, No rash on exposed areas, No ulcerations on exposed areas, No other Results/Procedures: Labs Laboratory Tests 06/18/18 03:25: White Blood Count 13.2H, Red Blood Count 4.80, Hemoglobin 14.2, Hematocrit 41, Mean Corpuscular Volume 85, Mean Corpuscular Hemoglobin 30, Mean Corpuscular Hemoglobin Concent 35, Red Cell Distribution Width 12.8, Platelet Count 204, Mean Platelet Volume 9.1, Sodium Level 139, Potassium Level 3.5L, Chloride Level 106, Carbon Dioxide Level 23, Anion Gap 10, Blood Urea Nitrogen 7, Creatinine 0.67, Estimat Glomerular Filtration Rate > 60, BUN/Creatinine Ratio 10, Glucose Level 130H, Calcium Level 8.7, Triglycerides Level 173H, Cholesterol Level 137, LDL Cholesterol Direct 78, VLDL Cholesterol 35, HDL Cholesterol 39L A/P: Assessment/Dx: Non-STEMI, Diabetes, Hypertension, Hyperlipidemia, Active smoking Plan: Non-STEMI, given dual antiplatelet therapy, Lovenox. Coronary angiography done on 06/17/2018 showed severe athero-ectatic disease in LAD, left circumflex artery and RCA. FFR done of all 3 vessels showed acceptable FFR in LAD and left circumflex artery however severe abnormal FFR in RCA. Balloon angioplasty done to distal RCA/mid PDA with excellent results. Patient was placed on aspirin, Brilinta and ectasia due to severe ectasia. Diabetes, continue outpatient medications. Hypertension, lisinopril, metoprolol. Hyperlipidemia, Lipitor 40. Increase to Lipitor 80. Active smoking, strongly recommended to quit smoking. Thank you for your consultation. Please call me if you have any questions. Xiomara Caal MD, FACP, FACC, FSCAI, FHRS, CCDS Interventional Cardiology Cardiac Electrophysiology Vascular Medicine and Endovascular Interventions Clinical Quality Measures AMI/AHF: ASA po Prior to arrival: Lynda Wellington MD Jun 18, 2018 1:11 pm
[2018-06-18] MEDS ORDERED: LISI10TA2 PO (13:12)
== END 2018-06-18 12:37 | disposition home or self-care (01) | DRG 251 ==
LOC: EDUNIT# 00:21 → ER 00:25 → ICU 07:03
PROVIDERS: ADMIT Internal Medicine; ATTEND Internal Medicine
PROC: 02703ZZ Dilation of Coronary Artery, One Artery, Percutaneous Approach (ICD-10-PCS; principal; 2018-06-17)
PROC: 4A023N7 Measurement of Cardiac Sampling and Pressure, Left Heart, Percutaneous Approach (ICD-10-PCS; 2018-06-17)
PROC: B2111ZZ Fluoroscopy of Multiple Coronary Arteries using Low Osmolar Contrast (ICD-10-PCS; 2018-06-17)
PROC: B2151ZZ Fluoroscopy of Left Heart using Low Osmolar Contrast (ICD-10-PCS; 2018-06-17)
PROC: 4A033BC Measurement of Arterial Pressure, Coronary, Percutaneous Approach (ICD-10-PCS; 2018-06-17)
DX: I21.4 Non-ST elevation (NSTEMI) myocardial infarction (principal); E11.9 Type 2 diabetes mellitus without complications; I10 Essential (primary) hypertension; E78.2 Mixed hyperlipidemia; F17.210 Nicotine dependence, cigarettes, uncomplicated; I25.10 Atherosclerotic heart disease of native coronary artery without angina pectoris; E78.00 Pure hypercholesterolemia, unspecified; D72.823 Leukemoid reaction; E87.6 Hypokalemia; E78.1 Pure hyperglyceridemia; Z88.0 Allergy status to penicillin
CPT/HCPCS: 36415; 71045; 80048; 80053; 80061; 83735; 83874; 83880; 84484; 85007; 85027; 85347; 85610; 85730; 87081; 93005; 93041; 93458; 96361; 96365; 96366; 96375; 96376

== ENCOUNTER → 2021-01-20 | Outpatient (CLI) | payer BC ==
[~2021-01-20] VITALS: Ht 175 cm; Wt 91.0 kg
[~2021-01-20] MED LIST: AMLO-251 PO; APIX5TAB PO; ASPI-1238 PO; ATOR40TA70 PO; ATOR80TA76 PO; CATHETER FLUSH 10 ML SYR IV PRN; CETI10TA49 PO; CHOL10007 PO; DAPA1TAB3 PO; LISI10TA25 PO; MTP100TCR PO; Nitroglycerin SL; SITA100T12 PO; TELM1TAB37 PO; TICA90TA PO
[2021-01-20 09:30] VITALS: BP 127/98
[2021-01-20 09:40] VITALS: BP 151/99
[2021-01-20 09:42] VITALS: BP 148/94
--- NOTE | 2021-01-20 12:02 | Cardiology Stress Test Report ---
Stress Test Report Date of Procedure/Referring: Date of Procedure: Jan 20, 2021 PCP Harry Landrum MD Admitting Physician Ian Flores MD Indications: HTN Baseline Heart Rate: 85 Baseline Blood Pressure: Blood Pressure Systolic: 148 Blood Pressure Diastolic: 94 Vital Signs Date Time Temp Pulse Resp B/P (MAP) Pulse Ox O2 Delivery O2 Flow Rate FiO2 01/20/21 09:30 80 17 127/98 (108) 99 Room Air Baseline Vital Signs Vital Signs Date Time Temp Pulse Resp B/P (MAP) Pulse Ox O2 Delivery O2 Flow Rate FiO2 01/20/21 09:30 80 17 127/98 (108) 99 Room Air Baseline EKG: Baseline EKG: RBBB Summary: After explaining the procedure and details to the patient, he signed the consent and was brought to the stress nuclear laboratory. Patient exercised on standard Jalen protocol, EKG, heart rate and blood pressure were monitored continuously, resting and stress doses of radio tracer were injected, imaging was acquired and reviewed in the short axis, horizontal long axis and vertical long axis views Patient was able to exercise for a total of 6 minutes on Jalen protocol, METs 7.3 Maximum heart rate 153 Maximum blood pressure 151/99 Stress EKG, Minimal nondiagnostic changes Recovery EKG, Return to baseline TID: 1.2 SSS: 6 SDS: 0 EF: 52 Conclusion: 1. Fair exercise tolerance for a total of 6 minutes on standard Jalen protocol, 7.3 METS achieving 87% of maximal expected heart rate. 2. Baseline right bundle branch block with minimal nondiagnostic EKG changes with exercise return to baseline during recovery 3. Decrease uptake involving the mid to apical anterior wall and anterolateral wall with mild reversibility 4. Transient ischemic dilatation 1.2 value 5. Normal left ventricular size with mild hypokinesia of the anterior wall, ejection fraction 52% HARRY LANDRUM MD Jan 20, 2021 12:02
== END ==
LOC: CARD 08:30
PROVIDERS: ATTEND Internal Medicine Cardiovascular Disease
DX: I10 Essential (primary) hypertension (principal); I25.10 Atherosclerotic heart disease of native coronary artery without angina pectoris
CPT/HCPCS: 78452; 93017; A9502

== ENCOUNTER 2021-01-29 14:00 | Day surgery (SDC) | payer BC ==
[~2021-01-29] VITALS: Ht 175 cm; Wt 93.0 kg
[2021-01-29] VITALS (11 sets, daily range): BP systolic 116–153; BP diastolic 89–117
--- NOTE | 2021-01-29 12:44 | Diagnostic Imaging Report ---
INDICATION: Heart disease. Comparison made with prior examination of 06/17/2018. FINDINGS: The heart size, mediastinal configuration, and pulmonary vascularity are within normal limits. There is no pleural effusion, pneumothorax, or pneumonia. The osseous structures are unremarkable. IMPRESSION: No acute cardiopulmonary abnormality. Dictated by: Dictated on workstation # [id number]
[2021-01-29 12:49] LABS: HEMATOCRIT 45 % (40-54); HEMOGLOBIN 15.5 g/dL (13.3-17.7); MEAN CORPUSCULAR HEMOGLOBIN 30 pg (25-34); MEAN CORPUSCULAR HGB CONC 35 g/dL (32-36); MEAN CORPUSCULAR VOLUME 86 fL (80-99); MEAN PLATELET VOLUME 8.6 fL (9.0-12.2); PLATELET COUNT 234 10^3/uL (130-400); WHITE BLOOD COUNT 7.2 10^3/uL (4.3-11.0)
[2021-01-29 13:12] LABS: ALBUMIN 4.5 GM/DL (3.2-4.5); BILIRUBIN,TOTAL 1.1 MG/DL (0.1-1.0); CALCIUM 9.4 MG/DL (8.5-10.1); CREATININE SERUM 0.82 MG/DL (0.60-1.30); POTASSIUM 3.5 MMOL/L (3.6-5.0); TOTAL PROTEIN 7.4 GM/DL (6.4-8.2)
[2021-01-29 13:15] LABS: PROTHROMBIN TIME PATIENT 13.2 SEC (12.2-14.7)
--- NOTE | 2021-01-29 13:26 | Conscious Sedation/ASA ---
Conscious Sedation Pre-Proced Time 13:26 ASA Score 3 For ASA 3 and 4: Consider anesthesia and medical clearance. Also, for patients with a history of failed moderate sedation consider anesthesia. Airway Lungs Heart ASA score ASA 1: a normal healthy patient ASA 2: a patient with a mild systemic disease (mid diabetes, controlled hypertension, obesity x ASA 3: a patient with a severe systemic disease that limits activity (angina, COPD, prior Myocardial infarction) ASA 4: a patient with an incapacitating disease that is a constant threat to life (CHF, renal failure) ASA 5: a moribund patient not expected to survive 24 hrs. (ruptured aneurysm) ASA 6: a declared brain- patient whose organs are being harvested. For emergent operations, add the letter E after the classification Mallampati Classification Grade 3 Sedation Plan Analgesia, Amnesia, Plan communicated to team members, Discussed options with patient/fam, Discussed risks with patient/fam The patient is an appropriate candidate to undergo the planned procedure, sedation, and anesthesia. The patient immediately re-assessed prior to indication. HARRY FRENCH MD Jan 29, 2021 13:26
[~2021-01-29 14:00] MED LIST changes: +ACET-2267 PO; -CATHETER FLUSH 10 ML SYR IV PRN; +CETI10TA17 PO; +CHOL-34 PO; +FAMO-144 PO; +HEParin (CATH LAB) 2,000 ML IV ONE; +HEParin 1000 UNIT/ML (10ML VIAL) FOR BOLUS ONE; +LIDOCAINE 1% INJ 20 ML 20 ML VIAL ONE; +MIDAZOLAM 5 MG/5 ML (VERSED) VIAL ONE; +NITRO DRIP 25000 MCG/D5W 250 ML IV ONE; +NS IV 1000 ML 1,000 ML IV SCH; +NS IV 1000 ML 1,000 ML ONE; +TADA20TA43 PO; +VERAPAMIL 5 MG/2 ML (CALAN) VIAL IV ONE; +fentaNYL INJ 100 MCG/2 ML AMP ONE
[2021-01-29] MEDS ORDERED: TICAGRELOR 90 MG TABLET (BRILINTA) PO ONE (15:09)
[2021-01-29] MEDS ORDERED: ASPIRIN 325 MG (5 GR) TABLET ONE (15:09)
[2021-01-29] MEDS ORDERED: TADALAFIL 20 MG PO PRN (15:15)
--- NOTE | 2021-01-29 15:17 | Cardiac Cath Report ---
Cardiac Cath Report Physician (s)/Piano Technician (s) Physician HARRY FRENCH MD Pre-Procedure Diagnosis Pre-Procedure Diagnosis: Coronary artery disease Post-Procedure Note Procedure Start Date: Jan 29, 2021 Name of Procedure: Left heart catheterization Stenting to the LAD Findings/Procedure Note PROCEDURE NOTE: 45 years old gentleman with extensive coronary artery disease, history of intervention in the past, had an abnormal stress test, scheduled for cardiac catheterization possible PTCA. After explaining the procedure to the patient, all pros and cons were explained, all questions were answered. The patient signed the consent and then he was placed on the cardiac catheterization laboratory. Groin was prepped SL fashion local anesthesia was used. Sheath placed in the right radial artery, Dannemora catheter was prolapsed to the left ventricular cavity, pressure was measured, pullback LV to aorta was done, engaged the right and left coronary system and angiogram was done. Patient was noted to have severe stenosis in the mid LAD. EBU 4.0 guide was advanced to the left coronary system, BMW wire was advanced and parked distally. I proceeded with balloon dilatation using 3 x 20 mm balloon. Then attempted to advance 3.5 stent without success, after multiple attempts I advanced a second BMW wire and parked it in the distal LAD as a josephine wire. We attempted to advance the 3.5 stent without success. At that point I used a fresh new 3 x 20 balloon and ballooned the proximal and mid LAD then attempted again to advance the stent without success then I decided to try 3 x 18 mm pepe point stent which was delivered with difficulties to the midportion the proximal area I tried again to advance 3.5 stent without success I used an overlapping 3 x 18 mm pepe point stent and postdilated them using 3.5 x 20 mm balloon with excellent results. At the end of the procedure the sheath was removed. Vascular band was used FINDINGS: Hemodynamics LV 109/23, end-diastolic pressure of 23 Aorta 109/80 mean of 92 ANATOMY: Left Main is free of obstructive disease Left Anterior Descending has diffuse ectasia with 2 area of severe stenosis, complex intervention with significant difficulty advancing a stent to the midportion, I predilated with balloon and used a josephine wire then I used a smaller stent and was able to postdilated to 3.5 mm I used 2 overlapping pepe point stents 3 x 18 mm each and postdilated the proximal to 3.5 and distally 3.3 mm with excellent results. Left Circumflex has severe diffuse ectasia with moderate stenosis at the mid to distal portion Right Coronary Artery has severe diffuse ectasia with severe stenosis at the distal right PDA very small artery LV Gram was not done, pressure was measured CONCLUSION: 1. Severe diffuse coronary ectasia with slow flow in the coronary system. 2. Severe stenosis at the mid LAD with complex intervention, failed multiple attempt to advance 3.5 stent, I was able to advance 2 overlapping stents pepe point stents each is 3 x 18 mm postdilated proximally to 3.5 mm and distally 3.3 mm with excellent results 3. Severe stenosis at the distal right PDA, severe diffuse ectasia in the right coronary artery with slow flow not amendable to intervention 4. Diffuse ectasia in the circumflex artery with moderate stenosis at the midportion 5. Normal left ventricular end-diastolic pressure DISCUSSION AND RECOMMENDATION: Due to his extensive disease, I will continue with aggressive medical therapy. If he has progression of his disease I will consider referral for bypass surgery Anesthesia Type: Conscious Sedation Estimated blood loss (mL): 30 ml Contrast Amount: 200 ml Total Radiation Dose: 2152 mGy Post-Procedure Diagnosis Post-operative diagnosis: Coronary artery disease Hypertension Hyperlipidemia Diabetes mellitus HARRY FRENCH MD Jan 29, 2021 15:17
[2021-01-29] MEDS: NS IV 1000 ML 1,000 ML IV SCH (16:08)
--- NOTE | 2021-01-29 16:11 | Tele-ICU Consult ---
History of Present Illness History of Present Illness Date Seen by Provider: Jan 29, 2021 Time Seen by Provider: 15:58 Date of Admission This virtual visit was conducted using real time audio/video. Thank you for asking us to see this patient following cardiac cath and 2 stents placed in LAD. PMH: HTN HL DM SH: smoking history N FH: Non-contributory ROS: as in HPI PE: Resting comfortably. VSS. O2 sat 99% on RA. HEENT: No obvious masses, adenopathy or JVD. Chest: clear to auscultation. CV: RRR S1 S2 No murmur or added sounds. Abd: Non-tender. Bowel sounds Y. : Unremarkable. [place] [facility] [employer] [employer] [employer]/psychiatric: Grossly intact. No obvious focal findings. Extremities: No edema. Capillary refill < 3 seconds. Skin: unremarkable. Results: CXR: Normal. Available chart/ vitals / labs / images reviewed. Video assessment done using teleICU camera, rest of exam as per RN. A/P: Monitor for increasing oxygenation needs. Critical Care: critically ill patient. Cont. ASA, statin, Brilinta. Discussed with LINDA Baker.. Asked RN to reach out to eICU if any questions or concerns later. Time spent with patient/coordination of care with other health professionals (mins): 15 Allergies and Home Medications Allergies Coded Allergies: Penicillins (Verified Allergy, Unknown, 06/17/18) Home Medications Acetaminophen 500 Mg Tablet, 1,000 MG PO Q8H PRN for PAIN-MILD (1-4), (Reported) Aspirin 81 Mg Tablet.dr, 81 MG PO DAILY, (Reported) Atorvastatin Calcium 80 Mg Tablet, 80 MG PO HS, (Reported) LAST FILLED 09/05/2020 #90 90 DAY SUPPLY Cetirizine HCl 10 Mg Tablet, 10 MG PO DAILY, (Reported) Cholecalciferol (Vitamin D3) 25 Mcg Tablet, 25 MCG PO DAILY, (Reported) Dapagliflozin/Metformin HCl 1 Each Tab.bp.24h, 1 EACH PO DAILY, (Reported) Famotidine 10 Mg Tablet, 10 MG PO DAILY PRN for HEARTBURN, (Reported) Sitagliptin Phosphate 100 Mg Tablet, 100 MG PO DAILY, (Reported) Tadalafil 20 Mg Tablet, 20 MG PO DAILY PRN for SEXUAL ACTIVITY, (Reported) Telmisartan/Hydrochlorothiazid 1 Each Tablet, 1 EACH PO DAILY, (Reported) Ticagrelor 90 Mg Tablet, 90 MG PO BID, (Reported) Past Medical/Social/Family Hx Current Status Primary Language: Norwegian Review of Systems Constitutional: no symptoms reported EENTM: see HPI Respiratory: see HPI Gastrointestinal: see HPI Genitourinary: see HPI Musculoskeletal: see HPI Skin: see HPI Psychiatric/Neurological: See HPI (See free text.) Sepsis Event Evaluation Height, Weight, BMI Height: 5'9.00" Weight: 215lbs. 0.0oz. 97.744455ld; 30.36 BMI Method:Stated Exam Exam Patient acknowledged, consented, and participated in this virtual visit which was conducted using real time audio/video Vital Signs Date Time Temp Pulse Resp B/P (MAP) Pulse Ox O2 Delivery O2 Flow Rate FiO2 01/29/21 15:46 71 01/29/21 12:32 36.4 81 18 137/101 (113) 98 Room Air Height & Weight Height: 5'9.00" Weight: 215lbs. 0.0oz. 97.906261dd; 30.36 BMI Method:Stated General Appearance: No Apparent Distress Peripheral Pulses: 1+ Dorsalis Pedis (R), 1+ Left Dors-Pedis (L) (See free text) Results Lab Laboratory Tests 01/29/21 12:43 Assessment/Plan Assessment/Plan See free text Critical Care: Critically Ill Patient WILLIE AMIN MD Jan 29, 2021 16:11
[2021-01-29] MEDS ORDERED: FAMOTIDINE 20 MG (PEPCID) TABLET PO PRN (16:15)
[2021-01-29] MEDS ORDERED: TICAGRELOR 90 MG TABLET (BRILINTA) PO SCH (21:00)
[2021-01-29] MEDS: TICAGRELOR 90 MG TABLET (BRILINTA) PO SCH (21:15)
[2021-01-29] MEDS: ACETAMINOPHEN 500 MG TAB (TYLENOL) PO PRN (23:12)
[2021-01-30] VITALS: BP 133/93
[2021-01-30] MEDS: NS IV 1000 ML 1,000 ML IV SCH (01:16)
[2021-01-30 03:59] VITALS: BP 133/98
--- NOTE | 2021-01-30 06:48 | Discharge Inst-Post CATH ---
Discharge Inst-CATH/EP Problems Reviewed?: Yes Post Cardiac Cath/EP D/C Inst Follow Up/Plan Appointment with Dr Landrum in 2-4 weeks <b>CARDIAC CATH/EP PROCEDURE DISCHARGE INSTRUCTIONS</b> ACTIVITY * Go Home directly and rest. * Limit activity of the leg (or wrist if it was used) for 7 days including aerobics, swimming, jogging, bicycling, etc. * Restrict stair-climbing for 7 days if possible, if not, climb up with your non-cath leg, then bring together on the same step. * Avoid lifting, pushing, pulling or excessive movement of the affected extremity for 7 days. * Customary sexual activity may be resumed after 2 days-use caution not to use a position that strains or causes pain to the affected extremity. * No driving for 24 hours. * NO SMOKING. * Avoid straining for bowel movements for 7 days. * Gentle walking on level ground is allowed. * Returning to work will depend on the type of procedure and the results. Your doctor will discuss this with you. CALL YOUR DOCTOR FOR ANY OF THE FOLLOWING: *If bleeding from the puncture site occurs- Apply gentle pressure to site with clean cloth and call your doctor or EMS. * If a knot or lump forms under the skin, increases in size, or causes pain. * If bruising appears to be worsening or moving further down your leg instead of disappearing. * Temperature above 101 F. CARE OF YOUR GROIN INCISION; * Bruising or purple discoloration of the skin near the puncture site is common. * You may shower only, no bathtub bathing for 5 days. Be careful to avoid slipping as your leg may feel stiff. * If a closure device was used on your femoral artery, please see the attached guide regarding care of the device and your leg. * Leave dressing on FOR 24 hours. CARE OF YOUR WRIST INCISION; * Bruising or purple discoloration of the skin near the puncture site is common. * You may shower. * DO NOT submerge wrist. * Leave dressing on FOR 24 hours. HARRY LANDRUM MD Jan 30, 2021 06:48
[2021-01-30 07:17] VITALS: BP 157/109
[2021-01-30] MEDS: TICAGRELOR 90 MG TABLET (BRILINTA) PO SCH (08:44)
[2021-01-30] MEDS ORDERED: LORATADINE (CLARITIN) 10 MG TAB PO SCH (09:00)
[2021-01-30] MEDS ORDERED: ASPIRIN E.C. 81 MG (ECOTRIN) TAB PO SCH ×2 (09:00)
[2021-01-30] MEDS ORDERED: LOSARTAN 100 MG (COZAAR) TABLET PO SCH (09:00)
[2021-01-30] MEDS ORDERED: TICA90TA PO (09:02)
[2021-01-30] MEDS ORDERED: EZET10TA17 PO (09:02)
[2021-01-30] MEDS ORDERED: METO-351 PO (09:02)
[2021-01-30] MEDS: ACETAMINOPHEN 500 MG TAB (TYLENOL) PO PRN (09:23)
[2021-01-30 10:00] VITALS: BP 148/88
--- NOTE | 2021-01-30 12:51 | Cardiology Progress Note ---
Subjective Date Seen by Provider: Jan 30, 2021 Time Seen by Provider: 12:50 Subjective/Events-last exam Patient was seen at bedside, laying down comfortably, his radial site has healed well. Review of Systems General: No Chills, No Night Sweats, No Fatigue, No Malaise, No Appetite, No Other HEENT: No Head Aches, No Visual Changes, No Eye Pain, No Ear Pain, No Dysphasia, No Sinus Congestion, No Post Nasal Drip, No Sore Throat, No Other Pulmonary: No Dyspnea, No Cough, No Pleuritic Chest Pain, No Other Cardiovascular: No: Chest Pain, Palpitations, Orthopnea, Paroxysmal Noc. Dyspnea, Edema, Lt Headedness, Other Objective-Cardiology Exam Last Set of Vital Signs Vital Signs 01/30/21 10:00 Temp 36.2 Pulse 78 Resp 18 B/P (MAP) 148/88 (108) Pulse Ox 97 O2 Delivery Room Air General: Alert, Oriented X3, Cooperative HEENT: Atraumatic, PERRLA Neck: Supple, No JVD, No Thyromegaly Lungs: Clear to Auscultation, Normal Air Movement Heart: Regular Rate, Normal S1, Normal S2, No Murmurs Abdomen: Normal Bowel Sounds, Soft, No Tenderness, No Hepatosplenomegaly, No Masses Extremities: No Clubbing, No Cyanosis, No Edema, Normal Pulses, No Tenderness/Swelling Skin: No Rashes, No Breakdown, No Significant Lesion Neuro: Normal Gait, Normal Speech, Strength at 5/5 X4 Ext, Normal Tone, Sensation Intact Psych/Mental Status: Mental Status NL, Mood NL A/P-Cardiology Admission Diagnosis Coronary artery disease Hypertension Hyperlipidemia Tobaccoism Assessment/Plan Coronary artery disease, complex intervention with deployment of 2 stents in the LAD with excellent results, has severe diffuse coronary ectasia. I had a long discussion with the patient and explained his anatomy and emphasized on compliance with medication and avoiding tobacco Continue on aspirin and increase Brilinta back to 90 mg twice a day Hypertension, restarting Toprol-XL 25 mg daily and continue to monitor Hyperlipidemia, has been on Lipitor 80 mg daily, adding Zetia 10 mg daily Tobaccoism, encouraged to stop smoking HARRY FRENCH MD Jan 30, 2021 12:51
== END 2021-01-30 10:50 ==
LOC: CATH 14:00 → ICU 15:39 → CSD 19:37 → CATH 01-30 10:50
PROVIDERS: ATTEND Internal Medicine Cardiovascular Disease
DX: I25.10 Atherosclerotic heart disease of native coronary artery without angina pectoris (principal); I10 Essential (primary) hypertension; E11.9 Type 2 diabetes mellitus without complications; E78.2 Mixed hyperlipidemia; G47.33 Obstructive sleep apnea (adult) (pediatric); F17.210 Nicotine dependence, cigarettes, uncomplicated; Z79.82 Long term (current) use of aspirin; Z79.899 Other long term (current) drug therapy; Z83.3 Family history of diabetes mellitus; Z80.9 Family history of malignant neoplasm, unspecified
CPT/HCPCS: 71045; 80053; 80061; 85027; 85610; 85730; 87081; 93458; C1725 ×2; C1769; C1874 ×2; C1887; C1894; C9600; 36415

== ENCOUNTER 2021-07-23 06:22 | Outpatient (CLI) | payer BC ==
[~2021-07-23] VITALS: Ht 175.3 cm; Wt 90.7 kg
[~2021-07-23 06:22] MED LIST changes: +EZET10TA17 PO; -HEParin (CATH LAB) 2,000 ML IV ONE; -HEParin 1000 UNIT/ML (10ML VIAL) FOR BOLUS ONE; -LIDOCAINE 1% INJ 20 ML 20 ML VIAL ONE; +METO-351 PO; -MIDAZOLAM 5 MG/5 ML (VERSED) VIAL ONE; -NITRO DRIP 25000 MCG/D5W 250 ML IV ONE; -NS IV 1000 ML 1,000 ML IV SCH; -NS IV 1000 ML 1,000 ML ONE; -VERAPAMIL 5 MG/2 ML (CALAN) VIAL IV ONE; -fentaNYL INJ 100 MCG/2 ML AMP ONE
== END 2021-07-23 11:19 | disposition home or self-care (01) ==
LOC: PREOP 06:22
PROVIDERS: ATTEND Internal Medicine
DX: Z01.818 Encounter for other preprocedural examination (principal)

== ENCOUNTER → 2021-12-16 | Outpatient (CLI) | payer BC ==
[~2021-12-16] MED LIST changes: +CATHETER FLUSH 10 ML SYR IVP PRN
[2021-12-16 08:00] VITALS: BP 130/98
--- NOTE | 2021-12-16 12:06 | Cardiology Stress Test Report ---
Stress Test Report Date of Procedure/Referring: Date of Procedure: Dec 16, 2021 PCP Emily Tabares MD Admitting Physician Admitting Physician: Attending Physician: Camryn Landrum MD Indications: cp Baseline Heart Rate: 81 Baseline Blood Pressure: Blood Pressure Systolic: 130 Blood Pressure Diastolic: 98 Vital Signs Date Time Temp Pulse Resp B/P (MAP) Pulse Ox O2 Delivery O2 Flow Rate FiO2 12/16/21 08:00 81 130/98 (109) Baseline Vital Signs Vital Signs Date Time Temp Pulse Resp B/P (MAP) Pulse Ox O2 Delivery O2 Flow Rate FiO2 12/16/21 08:00 81 130/98 (109) Baseline EKG: Baseline EKG: RBBB Summary: After explaining the procedure and details to the patient, he signed the consent and was brought to the stress nuclear laboratory. Patient exercised on standard Jalen protocol, EKG, heart rate and blood pressure were monitored continuously, resting and stress doses of radio tracer were injected, imaging was acquired and reviewed in the short axis, horizontal long axis and vertical long axis views Patient was able to exercise for a total of 6 minutes on Jalen protocol, METs 7.3 Maximum heart rate 158 Maximum blood pressure 173/100 Stress EKG, Minimal nondiagnostic changes Recovery EKG, Return to baseline TID: 0.99 SSS: 6 SDS: 0 EF: 62 Conclusion: 1. Fair exercise tolerance for a total of 6 minutes on standard Jalen protocol, 7.3 METS achieving 91% of maximum expected heart rate 2. Appropriate heart rate response to exercise with hypertensive response to exercise return to baseline during recovery 3. Nondiagnostic EKG changes with exercise with baseline right bundle branch block 4. Fixed defect involving the mid to apical anterior wall with no reversibility 5. Normal left ventricular size with normal contractility, ejection fraction 62% Copy Copies To 1: EMILY TABARES MD, BASHAR J MD Dec 16, 2021 12:06
== END ==
LOC: CARD 06:34
PROVIDERS: ATTEND Internal Medicine Cardiovascular Disease
DX: I10 Essential (primary) hypertension (principal); I25.10 Atherosclerotic heart disease of native coronary artery without angina pectoris
CPT/HCPCS: 78452; 93017; A9502